=== PATIENT | male | born 1960 | race Caucasian/White ===

== ENCOUNTER → 2023-01-07 14:55 | Outpatient (REF) | payer BC, SELFPAY ==
--- NOTE | 2023-01-07 15:13 | CA_ITS ---
Transthoracic Echocardiogram Patient (Last, First, Middle): Oliverio Ruiz D Gender: Male Date of : 1960 Age: 62 Procedure Date: 01/07/2023 Procedure Type: Transthoracic Echocardiogram Location: OP Height: 175.26 cm Weight: 90.72 kg BSA: 2.07 m2 Heart Rate: bpm BP: 150 / 98 mmHg Integrity Manager: TO Referring MD: Amelia WINTER Supervisor Sample Preparation: Abhilash Clarke MD Symptoms: SOB Study Quality: Fair ECG Rhythm: Sinus Conclusions: - 1. Mildly dilated left ventricle with [id number] LV systolic dysfunction with LVEF of 40-45% with pseudonormal filling pattern 2. Mildly dilated left atrium 3. [id number] mitral regurgitation 4. Mildly dilated ascending aorta at 4 cm 5. No gross pericardial effusion Findings Left Ventricle Mildly increased left ventricular cavity size. There is mildly increased left ventricular wall thickness. The left ventricular systolic function is mild to moderately decreased. The visually estimated ejection fraction is between 40-45%. Spectral Doppler is indicative of a pseudonormal filling pattern. E/E prime ratio is between 8 and 15 consistent with indeterminate filling pressures. Peak GLS is -9.4%, which is significantly reduced. Right Ventricle Normal right ventricular cavity size and systolic function. Atria The left atrium is mildly dilated. Interatrial shunt cannot be excluded. The right atrium is normal in size. Aortic Valve The aortic valve structure and function is likely normal. There is no aortic valve stenosis. There is no aortic valve regurgitation. Mitral Valve There is mild anterior and posterior mitral leaflet thickening. There is mild to moderate mitral valve regurgitation. There is no mitral valve stenosis. Pulmonic Valve The pulmonic valve is likely normal. Tricuspid Valve Likely normal tricuspid valve structure and function. Tricuspid regurgitation envelope is inadequate for calculation of right ventricular systolic pressure. Normal right atrial pressure. Great Vessels The pulmonary artery was not well visualized. There is mild dilatation of the ascending aorta measuring 4.00 cm. Venous The inferior vena cava is normal in size and collapses greater than 50% with inspiration. Pericardium/Pleural There is no evidence of pericardial effusion. Prior Study Comparison No prior study available for comparison. Measurements 2D Linear Measurements IVSd: 1.21 0.6-0.9/0.6-1.0 cm LVIDd: 6.10 3.9-5.3/4.2-5.9 cm LVIDd Index: 2.95 2.4-3.2/2.2-3.1 cm/m2 LVIDs: 4.87 2.0-3.6 cm LVPWd: 1.15 0.7-1.1 cm LA Diam: 4.70 2.7-3.8/3.0-4.0 cm LAIDs Index: 2.27 1.5-2.3 cm/m2 LV Mass: 393.66 67-162/88-224 g LV Mass Index: 190.17 43-95/49-115 g/m2 LVOT Diam: 2.20 3.0+(-)1.3 cm 2D Systolic Function EF 4C: 45.40 >55% EF 2C: 40.80 >55% EF BiP: 43.10 >55% Mitral Valve MV Pk E: 1.04 MV PK A: 0.40 MV Decel Time: 169.00 E/A: 2.60 E'Lateral: 9.79 E'Medial: 5.44 E/E' Med: 19.10 E/E' Lat: 10.60 PHT: 50.00 MVA PHT: 4.40 Decel Hawkins: 6.16 Aortic Valve AoV Pk Chris: 1.45 AoV Mn Chris: 1.00 AoV VTI: 0.25 AoV Pk Grad: 8.00 Aov Mn Grad: 5.00 SARAI Cont.VTI: 2.45 LVOT LVOT Pk Chris: 0.96 LVOT Mn Chris: 0.66 LVOT VTI: 0.16 LVOT Pk Grad: 4.00 LVOT Mn Grad: 2.00 LVOT Diam: 2.20 LVOT Area: 3.80 Diastolic Function MV Pk E: 1.04 MV Pk A: 0.40 E/A: 2.60 E'Medial: 5.44 E/E' Med: 19.10 E' Laterial: 9.79 E/E' Lat: 10.60 Right Ventricle TAPSE (mm): 24.40 TVS' Chris: 14.70 Tricuspid Valve RA Press: 3.00 Great Vessels Aorta Sinus of Valsalva: 2.99 2.0-3.5 cm Ao Asc: 4.00 2.1-3.4 cm Updated in Other Vendor System with Status of Final Abhilash Clarke MD electronically signed on 01/08/2023 11:25:40 AM with status of Final
== END ==
LOC: HO.CARD 14:55
PROVIDERS: PCP Internal Medicine; Visit Provider Physician Assistant
DX: R06.02 Shortness of breath (principal)
CPT/HCPCS: 93306; 93356

== ENCOUNTER → 2023-01-07 15:13 | Outpatient (BNV) | payer BC, SELFPAY | PROVIDERS: PCP Internal Medicine; Visit Provider Internal Medicine Cardiovascular Disease | DX: I34.0 Nonrheumatic mitral (valve) insufficiency (principal) | CPT/HCPCS: 93306 ==

== ENCOUNTER 2023-02-05 09:54 | Outpatient (REF) | payer BC, SELFPAY ==
[2023-02-05 14:10] LABS: Estimated Average Glucose 117 mg/dL; Hemoglobin A1C 148.3537 umol/L; Hemoglobin A1c % 5.7 %
[2023-02-05 14:44] LABS: Alanine Aminotransferase 19 U/L (0-40); Albumin Level 4.4 g/dL (3.5-5.0); Alkaline Phosphatase 61 U/L (39-117); Anion Gap 16 (12-20); Aspartate Amino Transferase 28 U/L (5-37); Bilirubin Total 0.6 mg/dL (0.0-1.0); Blood Urea Nitrogen 11 mg/dL (9-16); Calcium 9.4 mg/dL (8.4-10.2); Carbon Dioxide 26 mmol/L (22-29); Chloride 105 mmol/L (96-108); Cholesterol 251 mg/dL; Estimated Glomerular Filt Rate 60; Glucose Random 90 mg/dL (60-115); HDL Cholesterol 79 mg/dL; Iron 56 mcg/dL (45-160); LDL Cholesterol Calculated 140 mg/dl; Percent Iron Saturation 15 % (15-50); Potassium 4.5 mmol/L (3.3-5.1); Sodium 142 mmol/L (135-145); Total Iron Binding Capacity 378 mcg/dL (228-428); Total Protein 7.9 g/dL (6.5-8.0); Triglycerides 163 mg/dL; Unsaturated Iron Binding 322 ug/dL
[2023-02-05 14:48] LABS: Prostate Specific Antigen 2.11 ng/mL (<0.05-4.0)
[2023-02-05 14:51] LABS: Ferritin 36 ng/mL (20-250); Vitamin D 25-OH Total 56.9 ng/mL (>30)
[2023-02-08 15:14] LABS: NT-proBNP 1282 pg/mL (<125)
== END 2023-02-05 09:55 | disposition home or self-care (01) ==
LOC: HO.MANLDS 09:54
PROVIDERS: Visit Provider Internal Medicine
DX: Z00.01 Encounter for general adult medical examination with abnormal findings (principal); Z12.5 Encounter for screening for malignant neoplasm of prostate; I10 Essential (primary) hypertension; E78.00 Pure hypercholesterolemia, unspecified; R73.01 Impaired fasting glucose; E61.1 Iron deficiency; I16.0 Hypertensive urgency
CPT/HCPCS: 36415; 80053; 80061; 82306; 82728; 83036; 83540; 83880; 84153